=== PATIENT | female | born 1955 ===

== ENCOUNTER 2017-01-05 15:19 | Day surgery (SDC) | payer OTHER ==
[~2017-01-05] VITALS: Ht 17.8 cm; Wt 107.7 kg
[2017-01-05] VITALS (10 sets, daily range): BP systolic 100–188; BP diastolic 59–83; PULSE 63–90; TEMP 97.5–98.6
[2017-01-05] MEDS ORDERED: PROZAC 20MG20 MG PO (15:32)
[2017-01-05] MEDS ORDERED: LIPITOR 10MG10 MG PO (15:32)
[2017-01-05] MEDS ORDERED: VITAMIN D1000 IU PO (15:33)
[2017-01-05] MEDS ORDERED: NORCO 325 MG-51 TAB PO (15:34)
[2017-01-05] MEDS ORDERED: COMPAZINE 5MG TA5 MG PO (15:34)
[2017-01-06 02:18] VITALS: BP 109/65; PULSE 73; TEMP 97.7
[2017-01-06 05:05] VITALS: BP 109/79; PULSE 79; TEMP 98.5
[2017-01-06 09:46] VITALS: BP 110/59; PULSE 66; TEMP 98.1
== END 2017-01-06 14:00 | disposition home or self-care (01) ==
LOC: SDCO 15:19 → SURG 15:20 → SDCO 17:00
DX: K35.80 Unspecified acute appendicitis (principal); E78.00 Pure hypercholesterolemia, unspecified; Z79.899 Other long term (current) drug therapy
CPT/HCPCS: OP; J1885; J2405; J2704; J2765; J3010; J7120